=== PATIENT | female | born 1950 | race Caucasian/White ===

== ENCOUNTER 2017-10-14 11:40 | Emergency (ER) | payer MEDICARE, BC ==
[2017-10-14] MEDS ORDERED: Acetaminophen/HYDROcodone 325-5 MG Tab PO ONE (12:37)
--- NOTE | 2017-10-14 12:46 | EDM.PDOC ---
ED HPI GENERAL MEDICAL PROBLEM - General Chief Complaint: General Stated Complaint: RIGHT ANKLE PAIN Time Seen by Provider: 10/14/17 12:36 Source of Information: Reports: Patient History Limitations: Reports: No Limitations - History of Present Illness INITIAL COMMENTS - FREE TEXT/NARRATIVE: Patient is a 66-year-old female who presents to the emergency department this afternoon with a complaint of right foot pain. Patient states that she was cleaning her boat yesterday at 7 p.m. and jumped off to the ground-level for about a 3 foot fall. Patient landed on right foot and when patient took off her shoes she realized there was swelling of the top part of her foot. She iced it last night but symptoms persisted today, so she decided to present to the emergency department. Patient denies any other pain or injury, chest pain, shortness of breath, headache, head injury, dizziness, nausea, vomiting. 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 Right Ankle Pain Score (Numeric/FACES): 5 - Related Data Allergies Allergy/AdvReac Type Severity Reaction Status Date / Time cefaclor [From Ceclor] Allergy Rash Verified 10/14/17 12:06 lisinopril Allergy Cough Verified 10/14/17 12:06 sulfamethoxazole Allergy Hives Verified 10/14/17 12:06 [From Bactrim] trimethoprim [From Bactrim] Allergy Hives Verified 10/14/17 12:06 Sulfa (Sulfonamide AdvReac Severe Hives Verified 10/14/17 12:06 Antibiotics) Social & Family History - Tobacco Use Smoking Status *Q: Former Smoker Used Tobacco, but Quit: Yes Month/Year Tobacco Last Used: 2014 Second Hand Smoke Exposure: No - Caffeine Use Caffeine Use: Reports: Coffee, Soda, Tea - Alcohol Use Days Per Week of Alcohol Use: 1 Number of Drinks Per Day: 1 Total Drinks Per Week: 1 - Recreational Drug Use Recreational Drug Use: No ED ROS GENERAL - Review of Systems Review Of Systems: ROS reveals no pertinent complaints other than HPI. Constitutional: Reports: No Symptoms HEENT: Reports: No Symptoms Respiratory: Reports: No Symptoms Cardiovascular: Reports: No Symptoms Endocrine: Reports: No Symptoms GI/Abdominal: Reports: No Symptoms : Reports: No Symptoms Musculoskeletal: Reports: Foot Pain (Right) Skin: Reports: No Symptoms Neurological: Reports: No Symptoms Psychiatric: Reports: No Symptoms Hematologic/Lymphatic: Reports: No Symptoms Immunologic: Reports: No Symptoms ED EXAM, GENERAL - Physical Exam Exam: See Below Exam Limited By: No Limitations General Appearance: Alert, WD/WN, No Apparent Distress Throat/Mouth: Normal Inspection, Normal Oropharynx, No Airway Compromise Head: Atraumatic, Normocephalic Neck: Normal Inspection Respiratory/Chest: No Respiratory Distress Back Exam: Normal Inspection, Full Range of Motion Extremities: Other (Right foot dorsal edema without ecchymosis. No heel tenderness. No ankle range of motion tenderness. No ligament laxity, no digit involvement.) Neurological: Alert, Oriented, Normal Cognition Psychiatric: Normal Affect, Normal Mood Skin Exam: Warm, Dry, Intact, Normal Color, No Rash Course - Vital Signs Last Recorded V/S: Last Vital Signs Temp 97.5 F 10/14/17 12:07 Pulse 87 10/14/17 12:07 Resp 18 10/14/17 12:07 BP 114/66 10/14/17 12:07 Pulse Ox 96 10/14/17 12:07 - Orders/Labs/Meds Orders: Active Orders 24 hr Category Date Time Status Ankle Min 3V Rt [CR] Stat Exams 10/14/17 12:20 Ordered Foot Comp Min 3V Rt [CR] Stat Exams 10/14/17 12:19 Taken Meds: Medications Discontinued Medications Generic Name Dose Route Start Last Admin Trade Name Albertina PRN Reason Stop Dose Admin Hydrocodone Bitart/Acetaminophen 1 tab 10/14/17 12:37 Drake 325-5 Mg PO 10/14/17 12:38 ONETIME ONE - Radiology Interpretation Free Text/Narrative:: Foot and ankle x-ray show no acute fracture or dislocation. - Re-Assessments/Exams Free Text/Narrative Re-Assessment/Exam: 10/14/17 13:09 Patient afebrile, nontoxic appearing, vital signs stable, Mayur applied to right foot, patient given 5 mg pain control. Pain mostly subsided. Departure - Departure Time of Disposition: 13:09 Disposition: Home, Self-Care 01 Condition: Good Clinical Impression: CHF, Congestive heart failure Contusion of foot, right Qualifiers: Encounter type: initial encounter Qualified Code(s): S90.31XA - Contusion of right foot, initial encounter Sprain of foot, right Qualifiers: Encounter type: initial encounter Qualified Code(s): S93.601A - Unspecified sprain of right foot, initial encounter - Discharge Information Instructions: Foot Contusion, [id number], Foot Sprain Referrals: Edilson Duncan MD [Primary Care Provider] - Additional Instructions: Ice, elevate, Motrin for discomfort. Limit activity. Follow-up with primary care doctor in next 2-3 days. - My Orders Last 24 Hours: My Active Orders 10/14/17 12:19 Foot Comp Min 3V Rt [CR] Stat 10/14/17 12:20 Ankle Min 3V Rt [CR] Stat - Assessment/Plan Last 24 Hours: My Active Orders 10/14/17 12:19 Foot Comp Min 3V Rt [CR] Stat 10/14/17 12:20 Ankle Min 3V Rt [CR] Stat Assessment:: Right foot contusion Plan: Follow-up with PCP
== END 2017-10-14 13:05 | disposition home or self-care (01) ==
LOC: KA.ED 11:40
DX: S93.601A Unspecified sprain of right foot, initial encounter (principal); I50.9 Heart failure, unspecified; Z88.8 Allergy status to other drugs, medicaments and biological substances; Z88.2 Allergy status to sulfonamides; Z79.891 Long term (current) use of opiate analgesic; W17.89XA Other fall from one level to another, initial encounter
CPT/HCPCS: 73610-RT; 73630-RT; 99283; A9270-GY